=== PATIENT | female | born 1980 | race Caucasian/White ===

== ENCOUNTER → 2018-04-03 | Outpatient (CLI) | payer OTHER ==
[~2018-04-03] MED LIST: ADDERALL20 MG PO; DEXTROAMPH SACC30 MG PO; FLEXERIL10 MG PO; MOBIC15 MG PO; MOTRIN800 MG PO; NAPROSYN500 MG PO; PRISTIQ100 MG PO; TRAMADOL HCL50 MG PO; VICODIN 500 MG-1 TAB PO; XANAX XR2 MG PO; ZITHROMAX Z PA250 MG PO
--- NOTE | ~2018-04-03 | EKG ---
[place], [place] ELECTROCARDIOGRAM REPORT NAME: CAMILLE JUSTIN UNIT #: [id number] ROOM: DOCTOR: EPIPHANY DRAFT REPORT BIRTHDATE: [birth year] [facility] Test Date: 2018-04-03 Test Time: 13:27:44 Pat Name: CAMILLE JUSTIN Department: Room: Gender: F Outreach Team Member: : 1980 Requested By: Wilma Whalen Order Number: [id number] Reading MD: Nathen Campos MD Measurements Intervals [place] Rate: 81 P: 58 WA: 123 QRS: 70 QRSD: 73 T: 47 QT: 379 QTc: 440 Interpretive Statements Sinus rhythm Electronically Signed On 04-05-2018 8:02:07 PDT by Nathen Campos MD CM:EKGRPT:ELECTROCARDIOGRAM REPORT [id number] Wilam Whalen EPIPHANY DRAFT REPORT Wilma Whalen
== END ==
LOC: CARD 13:15
DX: Z51.81 Encounter for therapeutic drug level monitoring (principal); Z79.899 Other long term (current) drug therapy

== ENCOUNTER 2018-09-28 22:24 | Emergency (ER) | payer OTHER ==
[~2018-09-28] VITALS: Wt 56.7 kg
[~2018-09-28 22:24] MED LIST changes: +CYCLOBENZAPRINE5 M3 PO; +Motrin,Rufen800 MG PO
[2018-09-28 22:26] VITALS: BP 122/82
[2018-09-28] MEDS ORDERED: IBU800 MG PO (22:38)
[2018-09-28] MEDS ORDERED: CYCLOBENZAPRINE10 MG PO (22:38)
== END 2018-09-29 00:39 | disposition home or self-care (01) ==
LOC: ED 22:24
DX: M54.5 Low back pain (principal); M25.552 Pain in left hip; F17.200 Nicotine dependence, unspecified, uncomplicated; Z79.899 Other long term (current) drug therapy; X50.9XXA Other and unspecified overexertion or strenuous movements or postures, initial encounter; Y93.89 Activity, other specified; Y92.89 Other specified places as the place of occurrence of the external cause; Y99.8 Other external cause status

== ENCOUNTER → 2020-05-11 | Outpatient (CLI) | payer OTHER ==
[~2020-05-11] MED LIST changes: +CYCLOBENZAPRINE10 MG PO; +IBU800 MG PO
== END | disposition home or self-care (01) ==
LOC: CARD 15:54
PROVIDERS: ATTEND Nurse Practitioner Family
DX: Z51.81 Encounter for therapeutic drug level monitoring (principal); K90.9 Intestinal malabsorption, unspecified; Z79.899 Other long term (current) drug therapy

== ENCOUNTER → 2020-06-06 | Outpatient (CLI) | payer OTHER | END | disposition home or self-care (01) | LOC: COVID19 14:23 | PROVIDERS: ATTEND Internal Medicine | DX: Z20.828 Contact with and (suspected) exposure to other viral communicable diseases (principal) ==

== ENCOUNTER → 2020-11-26 | Outpatient (CLI) | payer OTHER | END | disposition home or self-care (01) | LOC: LAB 08:38 | PROVIDERS: ATTEND Family Medicine | DX: Z51.81 Encounter for therapeutic drug level monitoring (principal) ==